=== PATIENT | male | born 1975 ===

== ENCOUNTER 2021-05-23 21:53 | Emergency (ER) | payer MEDICAID ==
[2021-05-23 22:11] VITALS: BP 111/47
[2021-05-23] MEDS ORDERED: levETIRAcetam 1000 MG/NS 0.75% 1,000 MG/100 ML BAG IV ONE (22:19)
--- NOTE | 2021-05-23 22:20 | Emergency Department Report ---
ED Seizure HPI - General Chief Complaint: Seizure Stated Complaint: SEIZURE Time Seen by Provider: 05/23/21 22:07 Source: patient, EMS Mode of arrival: Stretcher Limitations: No Limitations - History of Present Illness Initial Comments: Patient is a 45-year-old male who presents plaints of seizure. Patient was at home with his mother had a seizure. The patient's mother called the ambulance. EMS brought patient to the hospital. Patient states he is taking patient had a postictal state. Patient answers some questions appropriately. Patient had a postictal state. Patient complains of confusion and headache. Patient is currently x2. Patient to self and place. Patient states the headache is a mild headache. Patient denies blurry vision. Patient denies chest pain. Patient denies shortness of breath. Patient denies recent travel. Patient denies recent international travel. Patient denies exposure to the novel coronavirus. Patient denies sick contacts. Patient denies fever and chills. Patient denies cough. Patient denies diarr hea. Patient denies coming in contact with anybody with symptoms of the novel coronavirus. Complaint: seizure -: Sudden Description of Episode: loss of consciousness, tonic-clonic movement -: second(s) Witnessed:: Yes Trauma: No Seizure History: known seizure disorder, compliant with medication Place: home Possible Precipitating Event: none Associated Symptoms: confusion. denies: chest pain, cough, diaphoresis, fever/chills, loss of appetite, malaise, rash, shortness of breath, syncope, weakness, tongue injury, shoulder dislocation Treatments Prior to Arrival: none - Related Data Allergies Allergy/AdvReac Type Severity Reaction Status Date / Time No Known Allergies Allergy Unverified 05/23/21 22:08 ED Review of Systems ROS: Stated complaint: SEIZURE Other details as noted in HPI Constitutional: denies: chills, fever Eyes: denies: eye pain, eye discharge, vision change ENT: denies: ear pain, throat pain Respiratory: denies: cough, shortness of breath, wheezing Cardiovascular: denies: chest pain, palpitations Endocrine: no symptoms reported Gastrointestinal: denies: abdominal pain, nausea, diarrhea Genitourinary: denies: urgency, dysuria Musculoskeletal: denies: back pain, joint swelling, arthralgia Skin: denies: rash, lesions Neurological: as per HPI, headache. denies: weakness, paresthesias Psychiatric: denies: anxiety, depression Hematological/Lymphatic: denies: easy bleeding, easy bruising ED Past Medical Hx - Past Medical History Previous Medical History?: Yes Hx Seizures: Yes - Surgical History Past Surgical History?: No - Family History Family history: no significant - Social History Smoking Status: Never Smoker Substance Use Type: None ED Physical Exam - General Limitations: No Limitations General appearance: alert, in no apparent distress - Head Head exam: Present: atraumatic, normocephalic - Eye Eye exam: Present: normal appearance, PERRL Pupils: Present: normal accommodation - ENT ENT exam: Present: mucous membranes moist - Neck Neck exam: Present: normal inspection - Respiratory Respiratory exam: Present: normal lung sounds bilaterally. Absent: respiratory distress - Cardiovascular Cardiovascular Exam: Present: regular rate, normal rhythm. Absent: systolic murmur, diastolic murmur, rubs, gallop - GI/Abdominal GI/Abdominal exam: Present: soft, normal bowel sounds - Rectal Rectal exam: Present: deferred - Extremities Exam Extremities exam: Present: normal inspection - Back Exam Back exam: Present: normal inspection - Neurological Exam Neurological exam: Present: alert, altered - Psychiatric Psychiatric exam: Present: normal affect, normal mood - Skin Skin exam: Present: warm, dry, intact, normal color. Absent: rash ED Course Vital Signs 05/23/21 05/23/21 05/23/21 22:06 22:10 22:11 Temperature 97.7 F Pulse Rate 56 L Respiratory 15 Rate Blood Pressure 111/47 [Left] O2 Sat by Pulse 93 Oximetry - Reevaluation(s) Reevaluation #1: Patient is alert and oriented x4. Patient states he is feeling better. Patient states he still has a mild headache. I discussed all results and clinical findings with patient. I discussed plan of care with patient. Patient agrees with plan of care. Patient is stable for discharge. Patient will be discharged home. Patient given discharge instructions. Patient voiced understanding of discharge instructions. 05/23/21 23:48 ED Medical Decision Making - Lab Data Result diagrams: 05/23/21 22:24 05/23/21 22:24 - Radiology Data Radiology results: report reviewed . CT head/brain wo con INDICATION / CLINICAL INFORMATION: 45 years Male; Seizure, known history of seizures. TECHNIQUE: Routine CT head without contrast. All CT scans at this location are performed using CT dose reduction for ALARA by means of automated exposure control. COMPARISON: None. FINDINGS: BRAIN / INTRACRANIAL CONTENTS: No acute hemorrhage, mass effect, midline shift, hydrocephalus, or acute, large territorial infarct. No signs of significant atrophy or chronic infarct. No significant white matter abnormality seen. CRANIOCERVICAL JUNCTION: No significant abnormality. ORBITS: No significant abnormality of visualized orbits. SINUSES / MASTOIDS: Visualized paranasal sinuses and mastoid air cells are essentially clear. ADDITIONAL FINDINGS: Old nasal trauma suggested. IMPRESSION: 1. No focal mass, hemorrhage, hydrocephalus, or acute, large territorial infarct. - Medical Decision Making Patient is a 45-year-old male presents emergency room with complaints of seizure activity. Patient is at home his mother witnessed having seizure and called EMS. Patient states that they have been changing his seizure medications around lately. Patient states he is compliant with his medication and is actively seeing a neurologist. Patient's only complaint was confusion and headache. Patient had a head CT done to rule out intracranial process and assess headache. Patient CT scan of the head was negative for acute finding. Patient had labs done which were essentially unremarkable. Patient given oral Keppra. Patient did not have any further seizure activity in ER. Patient's confusion slowly improved. Patient with back to baseline was alert and oriented x4 before d ischarge. Patient not require any further emergency medical services. Patient not require inpatient services. Patient stable for discharge. Patient discharged home. - Differential Diagnosis Headache, seizure, confusion, medication changes, Critical care attestation.: If time is entered above; I have spent that time in minutes in the direct care of this critically ill patient, excluding procedure time. ED Disposition Clinical Impression: Seizure, Confusion Headache Qualifiers: Headache type: unspecified Headache chronicity pattern: acute headache Intractability: not intractable Qualified Code(s): R51.9 - Headache, unspecified Disposition: DC-01 TO HOME OR SELFCARE Is pt being admited?: No Does the pt Need Aspirin: No Condition: Stable Instructions: Epilepsy, Seizure, Adult Additional Instructions: Patient to follow-up with primary care in 2 to 3 days. Patient to follow-up with neurologist in 2 to 3 days. Patient to rest. Patient to increase water. Patient to avoid strenuous exercise or heavy lifting until cleared by neurologist and primary care. Patient to avoid driving. Patient avoid alcohol use. Patient to take Tylenol or ibuprofen as needed for pain. Patient to continue all medications. Patient to return to the ER if condition worsens, changes or new symptoms arise. Referrals: CATHERINE VALENTINE MD [Staff Physician] - 2-3 Days MENDEL SIFUENTES MD [Staff Physician] - 2-3 Days Time of Disposition: 23:51
[2021-05-23 22:49] LABS: Hemoglobin 15.7 gm/dl (11.8-15.2); Mean Corpuscular HGB Conc 34 % (32-34); Mean Corpuscular Volume 90 fl (84-94); Platelet Count 149 K/mm3 (140-440); Red Cell Distribution Width 13.9 % (13.2-15.2)
--- NOTE | 2021-05-23 23:00 | Cat Scan Report ---
. CT head/brain wo con INDICATION / CLINICAL INFORMATION: 45 years Male; Seizure, known history of seizures. TECHNIQUE: Routine CT head without contrast. All CT scans at this location are performed using CT dos e reduction for ALARA by means of automated exposure control. COMPARISON: None. FINDINGS: BRAIN / INTRACRANIAL CONTENTS: No acute hemorrhage, mass effect, midline shift, hydrocephalus, or acu te, large territorial infarct. No signs of significant atrophy or chronic infarct. No significant whi te matter abnormality seen. CRANIOCERVICAL JUNCTION: No significant abnormality. ORBITS: No significant abnormality of visualized orbits. SINUSES / MASTOIDS: Visualized paranasal sinuses and mastoid air cells are essentially clear. ADDITIONAL FINDINGS: Old nasal trauma suggested. IMPRESSION: 1. No focal mass, hemorrhage, hydrocephalus, or acute, large territorial infarct. Signer Name: Jermain Nuno MD, III Signed: 05/23/2021 10:55 PM Workstation Name: [id number]
[2021-05-23 23:06] LABS: Albumin 4.3 g/dL (3.9-5); Calcium 8.9 mg/dL (8.4-10.2)
[2021-05-23] MEDS ORDERED: levETIRAcetam 500 MG TAB PO ONE (23:13)
== END 2021-05-24 00:18 | disposition home or self-care (01) ==
LOC: ED 21:53
DX: R56.9 Unspecified convulsions (principal); R51.9 Headache, unspecified; R41.0 Disorientation, unspecified
CPT/HCPCS: 36415; 70450; 80053; 85027